=== PATIENT | male | born 1960 | race Caucasian/White ===

== ENCOUNTER 2025-08-26 03:53 | Inpatient (IN) | payer BC, MEDICAID ==
[~2025-08-26] VITALS: Ht 162.6 cm; Wt 54.4 kg
--- NOTE | 2025-08-26 04:06 | Physician Documentation ---
History of Present Illness ~ Stated Complaint: RENAL FAILURE Time Seen by MD: 04:01 HPI Patient presents to the emergency room for evaluation as a transfer from [facility] for acute kidney injury. Creatinine found to be over eight. Patient has a poor historian. Denies any previous medical care or kidney problems. I was able to find previous notes that showed that has creatinine was normal a proximally two years ago. Patient is a terrible historian. Of note they placed a Herman catheter in patient to measure ins and outs but since that time he has been suffering an erection since 1:30 a.m. fluid resuscitation has been initiated and patient is now making urine. Medication Reconciliation Allergies: Coded Allergies: No Known Allergies (Unverified , 08/26/25) Review of Systems ROS All review of systems negative except as per HPI Physical Exam Physical Exam General: Patient is awake, alert, oriented x4 in no acute distress Head: Normocephalic and atraumatic. Eyes: Conjunctival normal. EOMI. PERRL. ENT: Mucous membranes moist. Neck: Supple, trachea is midline. Chest: Clear to auscultation bilaterally without rales, rhonchi, or wheezes. There is no accessory muscle use or retractions. Cardiac: RRR without murmurs, gallops, or rubs. Abd: Soft, nondistended, nontender, with normoactive bowel sounds. No guarding, rebound, or rigidity. : Herman catheter in place with a soft penis Progress Results/Orders Results/Orders Orders - CROW POPE MD BMP (08/26/25 04:06) Cult Urine + Flushing Ct (08/26/25 05:23) Completed Orders - CROW POPE MD Cbc/Diff (08/26/25 04:06) Drug Screen, Urine (08/26/25 04:06) Ua W/Microscopic, Cult If Ind (08/26/25 04:26) Vital Signs 08/26/25 08/26/25 08/26/25 04:00 04:17 05:14 Temp 98.2 Pulse 67 68 Resp 18 18 14 B/P (MAP) 130/81 118/73 (88) Pulse Ox 97 96 O2 Flow Rate 0 Laboratory Tests Test 08/26/25 04:26 08/26/25 04:32 Urine Specimen Description Herman cath Urine Color Yellow Urine Clarity Cloudy Urine pH 5.5 Urine Specific Jeff 1.020 Urine Protein 30 H Urine Glucose (UA) 100 H Urine Ketones Negative Urine Occult Blood Large H Urine Nitrite Negative Urine Bilirubin Negative Urine Urobilinogen 0.2 Urine Leukocyte Esterase Trace H Urine RBC Tntc Urine WBC 10-20 H Urine Squamous Epithelial Cells Few Urine Bacteria 1+ Urine Coarse Granular Casts 0-3 Urine Culture Indicated Indicated Volume Urine Centrifuged 10 ml Urine Comment Urine Opiates Screen Negative Urine Methadone Screen Negative Urine Fentanyl Screen Negative Urine Barbiturates Screen Negative Urine Phencyclidine Screen Negative Urine Amphetamines Screen Negative Urine Benzodiazepines Screen Negative Urine Cocaine Screen Negative Urine Cannabinoids Screen Positive Drug Screen Comment White Blood Count 13.7 H Red Blood Count 4.79 Hemoglobin 14.5 Hematocrit 42.1 Mean Corpuscular Volume 87.8 Mean Corpuscular Hemoglobin 30.2 Mean Corpuscular Hemoglobin Concent 34.4 Red Cell Distribution Width 13.4 Platelet Count 340 Mean Platelet Volume 8.2 Neutrophils (%) (Auto) 78.6 H Lymphocytes (%) (Auto) 10.3 L Monocytes (%) (Auto) 10.4 Eosinophils (%) (Auto) 0.1 Basophils (%) (Auto) 0.6 Neutrophils # (Auto) 10.7 H Lymphocytes # (Auto) 1.4 Monocytes # (Auto) 1.4 H Eosinophils # (Auto) 0.0 Basophils # (Auto) 0.1 CBC Comment Sodium Level 132 L Chloride Level 97 L Carbon Dioxide Level 17.6 L Anion Gap 17 H Blood Urea Nitrogen 96 H Creatinine 6.86 H Estimated GFR/1.73 m2 8 BUN/Creatinine Ratio 14.0 Glucose Level 104 Calcium Level 7.6 L Albumin 3.4 Chemistry Comments Medical Decision Making Additional information obtaine: other Findings Patient presents to the emergency room sent from [facility] for significant acute kidney injury. Patient also found to have urinary tract infection. Concern for possible priapism however his penis soft at this time. Repeat labs show improved creatinine and increasing bicarb trending in the right direction. I do not feel he requires ICU. Urinary Diff Dx:Considerations: Include: AAA, Aortic dissection, Appendicitis, Appendicitis train, Bowel obstruction, Bladder outlet obstruc., Cholelithiasis, Choleangitis, Cholecystitis, DJD, Epididymitis, Hepatitis, HNP, Impaction, Musculoskeletal pain, Pancreatitis, Postoperative Comp., Prostatitis, Pyelonephritis, Renal failure, Renal infarction, Strain, Urolithiasis, Urinary Obstruction, Urethritis, Urinary retention, UTI, Other Genital Diff Dx:Considerations: Include: Abscess, Balanitis, Balanoposthitis, Cellulitis, Epididymitis, Entrapment injury, Boyd's gangrene, Foreign body, Facture penis, Hydrocele, Inguinal hernia, Post-op Complication, Paraphimosis, Prostatitis, Priapism, Syphilis, Testicular torsion, Torsion-epididymis, Torsion-appendiceal, Urinary retention, Urethritis, Urethritis-chlamydial, Urethritis-gonococcal, UTI, Other Departure Admitted to Inpatient Unit: yes, to hospitalist Impression: Primary Impression: Acute urinary tract infection Additional Impressions: Acute kidney failure Dehydration Condition: Guarded Referrals: NO PRIMARY CARE PROVIDER (PCP) Critical Care Note Total Time (mins): 30 Critical Care Note The very real possibility of a deterioration of this patient's condition required the highest level of my preparedness for sudden, emergent intervention. I provided critical care services, which included medication orders, frequent reevaluations of the patient's condition and response to treatment, ordering and reviewing test results, and discussing the case with various consultants. Excludes time spent performing separately billable procedures. The critical care time associated with the care of the patient was 30 minutes not counting procedures Signature Scribe Signature: No scribe Attestation: The note accurately reflects work and decisions made by me.Crow Pope MD 08/26/25 05:34 CROW POPE MD Aug 26, 2025 04:05
[2025-08-26 04:54] LABS: MEAN PLATELET VOLUME 8.2 FL (7.4-10.4); RED CELL DISTRIBUTION WIDTH 13.4 % (11.5-14.5)
[2025-08-26 05:11] LABS: URINE AMPHETAMINE SCREEN NEGATIVE (Neg); URINE BARBITUATE SCREEN NEGATIVE (Neg); URINE BENZODIAZEPINES SCREEN NEGATIVE (Neg); URINE CANNABINOID SCREEN POSITIVE (Neg); URINE COCAINE SCREEN NEGATIVE (Neg); URINE METHADONE SCREEN NEGATIVE (Neg); URINE OPIATE SCREEN NEGATIVE (Neg); URINE PHENCYCLIDINE SCREEN NEGATIVE (Neg)
[2025-08-26 05:14] LABS: LEUKOCYTE ESTERASE ,URINE TRACE (Neg); NITRITES, URINE NEGATIVE (Neg); OCCULT BLOOD,URINE LARGE (Neg)
[2025-08-26 05:16] LABS: UA COLLECTION TYPE FOLEY CATH
[2025-08-26 05:17] LABS: CREATININE 6.86 MG/DL (0.60-1.10); TOTAL CARBON DIOXIDE 17.6 MMOL/L (24-32); eCRCL 8 ML/MIN; eGFR 8 ML/MIN
[2025-08-26 05:22] LABS: SQUAMOUS EPITHELIAL CELL,UR FEW /LPF (FEW)
[2025-08-26 05:23] LABS: COARSE GRANULAR CAST 0-3 /LPF (NEGATIVE)
[2025-08-26] MEDS: CefTRIAXone/D5W-Rocephin 1gm 50 ML IV ONE (06:34)
[2025-08-26] MEDS ORDERED: ondansetron/PF 4mg/2ml inj IV PRN (08:45)
[2025-08-26] MEDS ORDERED: magnesium sulf-water 2g/50mL 50 ML IV PRN (08:45)
[2025-08-26] MEDS ORDERED: potassium Cl 40MEQ/1/2NS 520ml 520 ML IV PRN (08:45)
[2025-08-26] MEDS ORDERED: magnesium Cl slow-release 64mg tablet PO PRN (08:45)
[2025-08-26] MEDS ORDERED: magnesium sulf-water 4G/100mL 100 ML IV PRN (08:45)
[2025-08-26] MEDS ORDERED: potassium Cl 20 mEq SR tablet PO PRN ×2 (08:45)
--- NOTE | 2025-08-26 08:45 | HISTORY AND PHYSICAL ---
History & Physical Providers to CC ~ History of Present Illness Reason for Admit\Complaint: Abnormal creatinine History of Present Illness 64 years old agitated, irritated male unpleasant, states 'you do not speak very good Monegasque do you' when I was asking him questions which she reluctantly answered, asking me from Chinese, states that he has been feeling like S--t, has been having abdominal pain, has liver problems has kidneys failure and just does not feel well. Limited information was obtained from the patient. Patient has a creatinine of 6.86 and a BUN of 96. He has been admitted for further treatment of his acute renal failure. Allergies: Coded Allergies: No Known Allergies (Unverified , 08/26/25) Past Medical History Past Medical History Patient states he has liver problems but does not exactly know what. Past Surgical History Surgical History Comment None Family History Family History: Family history was reviewed; no changes noted. Past Social History Social History Comment Patient states he does not smoke cigarettes or drink since 1984, smokes pot. Health Maintenance Health Maintenance Not current on his immunizations ROS ROS Deferred Exam Vitals: Vital Signs Date Time Temp Pulse Resp B/P (MAP) Pulse Ox O2 Delivery O2 Flow Rate FiO2 08/26/25 07:35 67 16 126/68 (87) 96 08/26/25 05:55 0 08/26/25 04:00 98.2 General: Patient appears much older than his stated age. He is agitated unpleasant HEENT: Normocephalic, atraumatic, extraocular movements are intact, sclerae anicteric, conjunctiva pink, moist oral mucosa Neck: Supple, no JVD Chest: Bilateral diffuse inspiratory and expiratory rhonchi Cardiovascular: Regular rate rhythm Abdomen: Soft, tender in the left midabdomen Extremities: No cyanosis clubbing or edema Central Nervous System: Nonfocal. Moves all 4s Musculoskeletal: No joint swelling or deformities Skin: Poor turgor. No rash or ulcers Diagnostic Data Last Recorded Lab Results: 08/26/25 0432 08/26/25 043 Additional Plan 64 years old male transferred from [facility] for evaluation of renal failure #MICHAEL/CKD: Consulted Dr. Arboleda. Start on IV fluids and await his recommendations. # COPD ; Inhaled bronchodilators # Abdominal pain: # Full code DARRIN OLMOS MD Aug 26, 2025 08:45
[2025-08-26 11:45] VITALS: BP 140/75; PULSE 72; RESP 16; TEMP 97.8; O2SAT 95
[2025-08-26 15:00] VITALS: BP 127/77; PULSE 89; RESP 17; TEMP 97.8; O2SAT 98
[2025-08-26 15:26] VITALS: RESP 16; O2SAT 97
[2025-08-26 18:00] VITALS: BP 124/82; PULSE 86; RESP 17; TEMP 97.8; O2SAT 98
[2025-08-26 20:00] VITALS: RESP 18; O2SAT 98
[2025-08-26] MEDS: K and/or MAG REPLACEMENT MC SCH (20:00)
[2025-08-26 22:00] VITALS: BP 127/73; PULSE 70; RESP 21; TEMP 97; O2SAT 96
[2025-08-26] MEDS ORDERED: NO HOME MEDS (22:33)
[2025-08-27] VITALS (8 sets, daily range): BP systolic 109–148; BP diastolic 77–89; PULSE 67–88; RESP 12–20; TEMP 97–98; O2SAT 96–99
[2025-08-27] MEDS: normal saline 1000ml 1,000 ML IV SCH (01:05)
[2025-08-27 06:46] LABS: MEAN PLATELET VOLUME 8.0 FL (7.4-10.4); RED CELL DISTRIBUTION WIDTH 13.3 % (11.5-14.5)
[2025-08-27 07:07] LABS: CREATININE 3.11 MG/DL (0.60-1.10); TOTAL CARBON DIOXIDE 19.8 MMOL/L (24-32); eCRCL 18 ML/MIN; eGFR 20 ML/MIN
[2025-08-27] MEDS: EPOETIN ALFA-EPBX 20,000 UNIT/ML 1 ML MDV IV ONE (08:00)
[2025-08-27] MEDS: heparin 1,000 units/ml 10ml inj HE ONE ×2 (08:00)
[2025-08-27] MEDS ORDERED: normal saline 1000ml 100 ML IV PRN (08:00)
[2025-08-27] MEDS ORDERED: mannitol 12.5gm/50mL VIAL IV PRN (08:00)
[2025-08-27] MEDS: CefTRIAXone/D5W-Rocephin 1gm 50 ML IV SCH (08:56)
--- NOTE | 2025-08-27 12:26 | PROGRESS NOTE ---
Daily Progress Note Providers to CC ~ Antibiotic Timeout Antibiotic Ordered?: No Subjective No new complaints, seen resting comfortably. Objective Vital Signs Date Time Temp Pulse Resp B/P (MAP) Pulse Ox O2 Delivery O2 Flow Rate FiO2 08/27/25 08:00 15 97 Room Air 0.0 21 08/27/25 06:30 65 08/27/25 02:00 97.6 140/89 (106) Result Diagram: 08/27/2561308/27/25613 Gen. awake alert oriented asymptomatic HEENT: Normocephalic, atraumatic, extraocular movements are intact, sclera anicteric, conjunctiva pinkish, moist oral mucosa, no rash or ulcers. NECK: Supple, no JVD, trachea midline. CHEST: Clear to auscultation, no wheezes crackles or rhonchi. HEART: Regular rate rhythm, no murmur gallop or rub. ABDOMEN: Soft, nontender, no organomegaly. EXTREMITIES: No cyanosis clubbing or edema. NEURO EXAM: Grossly nonfocal. MUSCULOSKELETAL : No joint swelling or deformities. SKIN: No rash or ulcers noted. Other Results Medications reviewed Problem\Assessment\Plan 64 years old male transferred from [facility] for evaluation of renal failure #MICHAEL/CKD: Continue monitor creatinine. Nephrology consulted. Creatinine trending down. # COPD without exacerbation: Inhaled bronchodilators PRN. # Abdominal pain: Patient did not have any such complaints today. # UTI: Continue IV Rocephin # metabolic acidosis: Likely due to renal failure. Improving. # code status: Full code as per patient wishes. Date of Service: Aug 27, 2025 Billing Provider: DARRIN OLMOS MD Common Visit Codes: [id number] INP/OBS CARE(HIGH) DARRIN OLMOS MD Aug 27, 2025 12:26
[2025-08-27] MEDS ORDERED: NO HOME MEDS (13:51)
--- NOTE | 2025-08-27 22:35 | CONSULTATION REPORT ---
Consult Providers to CC ~ History of Present Illness Reason for Admit\\Complaint: Renal failure History of Present Illness This is a 64-year-old man with a history of chronic kidney disease of unknown stage and COPD, transferred from [facility] for evaluation of acute kidney injury (MICHAEL). The patient is alert but uncooperative and provides minimal information for assessment. He was noted to have renal failure with an initial creatinine of 6.86, which has improved to 3.11 following volume resuscitation. BUN has decreased from 96 to 79. He has also been empirically started on Rocephin for a suspected urinary tract infection. The patient denies current abdominal pain, and his vital signs are stable. He is not currently on any known antihypertensive medications. Allergies: Coded Allergies: No Known Allergies (Unverified , 08/26/25) Home Medications Home Medications Active Reported No Home Medications (Home Med List) Each copied from Gaye's note "1 cap. see order daily" Past Medical History Past Medical History Reviewed Past Surgical History Surgical History Comment Reviewed Family History Family History: FHx: sudden of unknown cause FATHER, Onset:45 Unknown family medical history MOTHER, Onset:70 Past Social History Social History Comment Reviewed ROS ROS All other systems negative by patient report Exam Vitals: Vital Signs Date Time Temp Pulse Resp B/P (MAP) Pulse Ox O2 Delivery O2 Flow Rate FiO2 08/27/25 20:00 16 98 Room Air 0.0 21 08/27/25 18:30 71 08/27/25 15:00 98.0 147/86 (106) Alert, appears comfortable Regular rate and rhythm without murmur, no JVD Clear to auscultation bilateral without wheezes Positive bowel sounds, nontender, no apparent masses No edema Diagnostic Data Last Recorded Lab Results: 08/27/25 0614 08/27/25 0614 Diagnostic Data: I & O 08/27/25 07:00 Intake Total 750 ml Output Total 2150 ml Balance -1400 ml Intake Oral 750 ml Output Urine Total 2150 ml Additional Plan Acute kidney injury on chronic kidney disease, improving: Creatinine and BUN have improved with volume resuscitation. Continue to monitor renal function and fluid status closely. Avoid nephrotoxic agents. Metabolic acidosis, likely secondary to MICHAEL: CO2 has improved from 17.6 to 19.8. Monitor acid-base status and consider bicarbonate therapy if acidosis worsens. Urinary tract infection: Empirically started on Rocephin. Monitor for clinical response and adjust antibiotics based on culture results. Chronic obstructive pulmonary disease, stable: No evidence of acute exacerbation. Continue inhaled bronchodilators as needed. Hyponatremia, mild, improving: Sodium has improved from 132 to 134. Continue to monitor electrolytes and address underlying causes. CHARBEL AQUINO III DO Aug 27, 2025 22:35
[2025-08-28] VITALS (8 sets, daily range): BP systolic 110–145; BP diastolic 54–90; PULSE 61–94; RESP 14–26; TEMP 97.6–99.2; O2SAT 96–98
[2025-08-28 06:44] LABS: MEAN PLATELET VOLUME 7.9 FL (7.4-10.4); RED CELL DISTRIBUTION WIDTH 13.5 % (11.5-14.5)
[2025-08-28 07:01] LABS: CREATININE 1.77 MG/DL (0.60-1.10); TOTAL CARBON DIOXIDE 23.0 MMOL/L (24-32); eCRCL 32 ML/MIN; eGFR 39 ML/MIN
[2025-08-28 09:13] LABS: HBSAG SCREEN Negative (Negative)
--- NOTE | 2025-08-28 13:03 | PROGRESS NOTE ---
Daily Progress Note Providers to CC ~ Antibiotic Timeout Antibiotic Ordered?: Yes Subjective Awake cooperative much more pleasant, showing me pictures of a toy dog that he wants as a pet. Objective Vital Signs Date Time Temp Pulse Resp B/P (MAP) Pulse Ox O2 Delivery O2 Flow Rate FiO2 08/28/25 08:00 14 96 Room Air 0.0 21 08/28/25 06:30 66 08/28/25 06:00 97.6 134/78 (96) Result Diagram: 08/28/25 0542 08/28/25 0542 Gen. awake alert oriented asymptomatic HEENT: Normocephalic, atraumatic, extraocular movements are intact, sclera anicteric, conjunctiva pinkish, moist oral mucosa, no rash or ulcers. NECK: Supple, no JVD, trachea midline. CHEST: Clear to auscultation, no wheezes crackles or rhonchi. HEART: Regular rate rhythm, no murmur gallop or rub. ABDOMEN: Soft, nontender, no organomegaly. EXTREMITIES: No cyanosis clubbing or edema. NEURO EXAM: Grossly nonfocal. MUSCULOSKELETAL : No joint swelling or deformities. SKIN: No rash or ulcers noted. Other Results Medications reviewed Problem\Assessment\Plan 64 years old male transferred from [facility] for evaluation of renal failure #MICHAEL/CKD: Continue monitor creatinine which is trending down. # COPD without exacerbation: Inhaled bronchodilators PRN. # Abdominal pain: Patient did not have any such complaints today. # UTI: Continue IV Rocephin # metabolic acidosis: Likely due to renal failure. Improving. # code status: Full code as per patient wishes. Date of Service: Aug 28, 2025 Billing Provider: DARRIN OLMOS MD Common Visit Codes: [id number] INP/OBS CARE(MOD) DARRIN OLMOS MD Aug 28, 2025 13:02
--- NOTE | 2025-08-28 18:47 | PROGRESS NOTE ---
Progress Note Dictate Providers to CC ~ Progress Note: This is a 64-year-old man with a history of chronic kidney disease of unknown stage and COPD, transferred from [facility] for evaluation of acute kidney injury (MICHAEL). The patient is alert but uncooperative and provides minimal information for assessment. He was noted to have renal failure with an initial creatinine of 6.86, which has improved to 3.11 following volume resuscitation. BUN has decreased from 96 to 79. He has also been empirically started on Rocephin for a suspected urinary tract infection. The patient denies current abdominal pain, and his vital signs are stable. He is not currently on any known antihypertensive medications. Antibiotic Ordered?: N/A Subjective Subjective He reports doing well today, no specific complaints Objective Vitals Vital Signs Date Time Temp Pulse Resp B/P (MAP) Pulse Ox O2 Delivery O2 Flow Rate FiO2 08/28/25 15:00 98.3 61 16 144/72 (96) 97 Room Air 0.0 21 Alert RRR w/o murmur +BS, NT No edema Lab Results: 08/28/25 0542 08/28/25 0542 Other Results I & O 08/28/25 07:00 Intake Total 500 ml Output Total 1150 ml Balance -650 ml Intake Oral 500 ml Output Urine Total 1150 ml Problem\Assessment\Plan Problems/Diagnosis: (1) Acute urinary tract infection Assessment & Plan: Acute kidney injury on chronic kidney disease, improving: Creatinine and BUN have improved with volume resuscitation. Continue to monitor renal function and fluid status closely. Avoid nephrotoxic agents. Metabolic acidosis, likely secondary to MICHAEL: CO2 has improved from 17.6 to 19.8. Monitor acid-base status and consider bicarbonate therapy if acidosis worsens. Hyponatremia, mild, improving: Sodium has improved from 132 to 134. Continue to monitor electrolytes and address underlying causes. (2) UTI (urinary tract infection) Assessment & Plan: Urinary tract infection: Empirically started on Rocephin. Monitor for clinical response and adjust antibiotics based on culture results. (3) COPD (chronic obstructive pulmonary disease) Assessment & Plan: Chronic obstructive pulmonary disease, stable: No evidence of acute exacerbation. Continue inhaled bronchodilators as needed. Additional Plan MICHAEL improving, back to his likely baseline renal function, we will sign off today. CHARBEL AQUINO III DO Aug 28, 2025 18:47
[2025-08-29 02:00] VITALS: BP 92/63; PULSE 89; RESP 20; TEMP 97.7; O2SAT 97
[2025-08-29 06:00] VITALS: BP 137/76; PULSE 93; RESP 18; TEMP 98.2; O2SAT 95
[2025-08-29 06:43] LABS: MEAN PLATELET VOLUME 7.8 FL (7.4-10.4); RED CELL DISTRIBUTION WIDTH 13.3 % (11.5-14.5)
[2025-08-29 07:54] LABS: CREATININE 1.46 MG/DL (0.60-1.10); TOTAL CARBON DIOXIDE 22.0 MMOL/L (24-32); eCRCL 39 ML/MIN; eGFR 48 ML/MIN
[2025-08-29 08:00] VITALS: RESP 18; O2SAT 95
[2025-08-29 11:00] VITALS: BP 143/86; PULSE 77; RESP 20; TEMP 98.7; O2SAT 97
[2025-08-29] MEDS ORDERED: LACT1CAP26 PO (14:00)
[2025-08-29] MEDS ORDERED: CEFD300C3 PO (14:00)
[2025-08-29 15:00] VITALS: BP 141/81; PULSE 63; RESP 18; TEMP 98.9; O2SAT 97
--- NOTE | 2025-08-29 19:53 | DISCHARGE SUMMARY ---
Discharge Summary Providers to CC ~ Discharge Summary Admission Diagnosis: MICHAEL Hospital Course DATE OF ADMISSION: 08/26/2025 DATE OF DISCHARGE: 08/29/2025 Discharge Diagnosis\\Comment: MICHAEL secondary to vasomotor nephropathy with underlining CKD, chronic COPD without exacerbation, UTI, metabolic acidosis Operations\\Procedures: None Consultants: Dr. Saul Arboleda fish and wildlife warden Complications: None Condition on DC: Stable New Medications: Cefdinir* (Cefdinir*) 300 Mg Capsule 1 CAP PO Q12H, #8 CAP Lactobacillus Rhamnosus (Culturelle) 10 Billion Cell Capsule 1 EACH PO BID, #20 CAP Discontinued Medications: Home Med List (No Home Medications) Each copied from Gaye's note "1 cap. see order daily" Discharge Summary: The patient is admitted by Dr. Maksim Roberts with the following HPI:"64 years old agitated, irritated male unpleasant, states 'you do not speak very good Ghanaian do you' when I was asking him questions which she reluctantly answered, asking me from Icelandic, states that he has been feeling like S--t, has been having abdominal pain, has liver problems has kidneys failure and just does not feel well. Limited information was obtained from the patient. Patient has a creatinine of 6.86 and a BUN of 96. He has been admitted for further treatment of his acute renal failure." With IV fluid resuscitation the patient is creatinine improved significantly initial creatinine was 6.86 on day discharge was 1.46 I recommended the patient obtain a metabolic panel in one-week to monitor his kidney function The patient has a UTI though the urine culture was negative the patient is treated IV Rocephin and was discharged with a four day course of p.o. cefdinir as well as Culturelle probiotic. Patient has chronic COPD was on room air during hospitalization did not require oxygen The patient had metabolic acidosis serum bicarb was 17.6 which improved with IV fluid resuscitation and was 22.0 on the day discharge- fish and wildlife warden Dr. Arboleda assessed that the patient has metabolic acidosis was likely secondary to acute kidney injury. Gen. No acute distress alert and oriented 4 Lungs clear to ascultation bilaterally, no wheezes rales or rhonchi appreciated Heart normal sinus rhythm no murmurs rubs or clicks noted Abdomen soft nontender bowel sounds are normoactive Lower extremities no clubbing cyanosis, nor edema appreciated bilaterally The patient felt ready to be discharged and was medically cleared to be discharged on 08/29/2025 The patient was seen and evaluated on day of discharge. Time spent on discharge 35 minutes *Problems/Diagnosis: (1) Acute urinary tract infection Status: Acute (2) UTI (urinary tract infection) Total Time Spent on D/C: > 30 Minutes Date of Service: Aug 29, 2025 Billing Provider: OLIVA SHAW DO Common Visit Codes: [id number] DISCH DAY >30min OLIVA SHAW DO Aug 29, 2025 19:53
== END 2025-08-29 15:25 | disposition home or self-care (01) | DRG 683 ==
LOC: ER 03:54 → EDBD 03:54 → ED HOLD 08:53 → PCU 3S 11:57
PROVIDERS: ADMIT Internal Medicine; ATTEND Internal Medicine
DX: N17.0 Acute kidney failure with tubular necrosis (principal); E87.1 Hypo-osmolality and hyponatremia; E87.20 Acidosis, unspecified; N39.0 Urinary tract infection, site not specified; J44.9 Chronic obstructive pulmonary disease, unspecified; N18.9 Chronic kidney disease, unspecified; E86.0 Dehydration
CPT/HCPCS: 36415; 80048; 80305; 81001; 83735; 85025; 87081; 87088; 87340; 92508; 92616; 97116; 97161; 99291; G0378; J0696; J7030